=== PATIENT | male | born 1970 | race Two or more races ===

== ENCOUNTER 2023-09-13 09:54 | Emergency (ER) | payer OTHER ==
[~2023-09-13] VITALS: Ht 182.9 cm; Wt 90.7 kg
[2023-09-13] MEDS ORDERED: MORPHINE SULFATE INJ 4 MG/ML DISP.SYRIN ONE (10:40)
[2023-09-13] MEDS ORDERED: ONDANSETRON HCL/PF 4 MG/2 ML VIAL ONE (10:40)
[2023-09-13] MEDS ORDERED: KETOROLAC TROMETHAMINE INJ 30 MG/ML VIAL ONE (10:40)
[2023-09-13] MEDS: IV NS 0.9% 1,000 ML BAG IV ONE (10:48)
[2023-09-13] MEDS: MORPHINE SULFATE INJ 2 MG/ML DISP.SYRIN IV ONE (10:49)
[2023-09-13] MEDS: KETOROLAC TROMETHAMINE 15 MG/ML VIAL IV ONE (10:49)
[2023-09-13] MEDS: ONDANSETRON HCL/PF 4 MG/2 ML VIAL IVP ONE (10:50)
[2023-09-13 11:12] LABS: CALCIUM, SERUM 9.5 mg/dL (8.5-10.1); CREATININE 1.2 mg/dL (0.6-1.3)
[2023-09-13 11:13] LABS: BASOPHILS % (AUTO) 0.7 % (0.0-2.0); EOSINOPHILS # (AUTO) 0.3 K/uL (0.0-0.7); EOSINOPHILS % (AUTO) 4.7 % (0.0-6.0); HEMATOCRIT 46 % (39-51); HEMOGLOBIN 15.8 g/dL (13.5-17.5); LYMPHOCYTES # (AUTO) 1.8 K/uL (0.8-4.8); LYMPHOCYTES % (AUTO) 29.7 % (20.0-44.0); MEAN CORPUSCULAR HEMOGLOBIN 30 PG (26.0-33.0); MEAN CORPUSCULAR HGB CONC 34 g/dl (31.0-36.0); MEAN CORPUSCULAR VOLUME 88 fL (80-96); MONOCYTES # (AUTO) 0.4 K/uL (0.1-1.30); NEUTROPHILS # (AUTO) 3.4 K/uL (1.8-8.9); NEUTROPHILS % (AUTO) 57.9 % (43.0-81.0); PLATELET COUNT (AUTO) 296 K/uL (150-450); RED BLOOD CELL COUNT(AUTO) 5.26 MIL/uL (4.5-6.0); RED CELL DISTRIBUTION WIDTH 13.4 % (11.5-15.0); WHITE BLOOD COUNT (AUTO) 5.9 K/uL (4.3-11.0)
[2023-09-13 11:19] LABS: ALBUMIN 3.8 g/dL (3.4-5.0); BILIRUBIN,DIRECT 0.1 mg/dL (0.0-0.2); BILIRUBIN,TOTAL 0.5 mg/dL (0.2-1.0); TOTAL PROTEIN, SERUM 7.8 g/dL (6.4-8.2)
[2023-09-13 11:54] LABS: APPEARANCE,URINE CLEAR (CLEAR); BILIRUBIN,URINE NEGATIVE (NEGATIVE); BLOOD, URINE NEGATIVE Ery/uL (NEGATIVE); COLOR,URINE YELLOW (YELLOW); KETONES,URINE NEGATIVE (NEGATIVE); LEUKOCYTE ESTERASE ,URINE NEGATIVE (NEGATIVE); NITRITE, URINE NEGATIVE (NEGATIVE); PH,URINE 5.5 (5.0-8.0); PROTEIN,URINE NEGATIVE (NEGATIVE); UGLUCOSE NEGATIVE (NEGATIVE); UROBILINOGEN,URINE 0.2 EU/dL (0.2)
[2023-09-13] MEDS ORDERED: IBUP-1953 PO ×2 (12:24→12:42)
[2023-09-13] MEDS ORDERED: HYDR-3972 PO ×2 (12:24→12:42)
[2023-09-13] MEDS ORDERED: TAMS-12 PO ×2 (12:24→12:42)
[2023-09-13] MEDS ORDERED: TAMSULOSIN 0.4 MG CAP.SR.24H ONE (12:30)
[2023-09-13] MEDS: TAMSULOSIN 0.4 MG CAP.SR.24H PO ONE (12:32)
[2023-09-13 12:53] VITALS: BP 135/80; TEMP 98.3; O2SAT 98
== END 2023-09-13 12:54 | disposition home or self-care (01) ==
LOC: ER 09:56
DX: N23 Unspecified renal colic (principal); N20.1 Calculus of ureter
CPT/HCPCS: 36415; 71045-TC; 80048-TC; 80076-TC; 83690-TC; 85025-TC; A4223; J1885; J2270; J2405; J7030